=== PATIENT | male | born 1955 | race African-American/Black ===

== ENCOUNTER → 2017-11-11 11:53 | Outpatient (REF) | payer SELFPAY ==
[2017-11-11 17:54] LABS: Basophils % 0.4 % (0.1-2.0); Eosinophils # 0.1 K/mm3 (0.0-0.4); Eosinophils % 1.7 % (0.1-12.0); Hematocrit 47.5 % (42.0-52.0); Hemoglobin 15.2 g/dL (14.1-18.0); Lymphocytes # 2.6 K/mm3 (0.7-4.5); Lymphocytes % 40.9 K/mm3 (10-50); Mean Corpuscular Volume 90.7 fl (80-94); Mean Platelet Volume 8.2 fl (7.4-10.4); Monocytes # 0.6 K/mm3 (0.1-1.0); Monocytes % 8.7 % (1.7-9.3); Neutrophils % 48.4 % (37.0-80.0); Platelet Count 339 K/mm3 (142-424); Red Blood Count 5.24 M/mm3 (4.60-6.20); Red Cell Distribution Width 12.8 % (11.5-17.5); White Blood Count 6.3 K/mm3 (4.8-10.8)
[2017-11-11 19:08] LABS: Alanine Aminotransferase 36 U/L (12-78); Albumin Level 3.8 gm/dL (3.4-5.0); Alkaline Phosphatase 93 U/L (46-116); Anion Gap 14.7 mEq/L (5-15); Aspartate Amino Transferase 35 U/L (15-37); Bilirubin,Total 0.2 mg/dL (0.2-1.0); Blood Urea Nitrogen 16 mg/dL (7-18); Carbon Dioxide 25 mmol/L (21.0-32.0); Chloride 104 mmol/L (98-107); Chol/HDL Ratio 4.4 (1-3.5); Cholesterol 225 mg/dL (140-200); Estimated Glomerular Filt Rate 61 ml/min (>60); GFR (African American) 74 ML/MIN (>60); Globulin 3.9 gm/dl (1.3-3.2); Glucose 104 mg/dL (74-106); HDL Cholesterol 51 mg/dL (27-67); LDL Cholesterol 163 mg/dL (0-130); Potassium 4.7 mmoL/L (3.5-5.1); Sodium 139 mmol/L (136-145); Thyroid Stimulating Hormone 1.16 uIU/ml (0.358-3.740); Total Protein,Serum 7.7 gm/dL (6.4-8.2); Triglycerides 56 mg/dL (30-200); VLDL Cholesterol 11 mg/dL (0-40)
[2017-11-13 15:37] LABS: PSA, Free 0.24 ng/mL; Prostate Specific Ag 0.8 ng/mL (0.0-4.0)
[2017-11-13 15:38] LABS: Vitamin D 25 Hydroxy 28.9 ng/mL (30.0-100.0)
== END ==
LOC: LAB 11:53
PROVIDERS: Visit Provider Physician Assistant
DX: I10 Essential (primary) hypertension (principal); Z79.899 Other long term (current) drug therapy
CPT/HCPCS: 80053; 80061; 82652; 84153; 84154; 84436; 84443; 85025

== ENCOUNTER → 2020-05-29 09:23 | Outpatient (CLI) | payer MEDICARE, SELFPAY ==
[2020-05-29 09:53] LABS: Basophils # 0.1 K/mm3 (0-0.2); Basophils % 1.1 % (0.1-2.0); Eosinophils # 0.2 K/mm3 (0.0-0.4); Eosinophils % 2.2 % (0.1-12.0); Hematocrit 47.9 % (42.0-52.0); Hemoglobin 16.1 g/dL (14.1-18.0); Lymphocytes # 4.4 K/mm3 (0.7-4.5); Lymphocytes % 48.4 % (10-50); Mean Corpuscular HGB Conc 33.6 g/dL (31.8-35.4); Mean Corpuscular Hemoglobin 30.6 pg (27.0-31.2); Mean Corpuscular Volume 91.2 fl (80-94); Mean Platelet Volume 7.5 fl (7.4-10.4); Monocytes # 0.8 K/mm3 (0.1-1.0); Monocytes % 8.4 % (1.7-9.3); Neutrophils # 3.6 K/mm3 (1.8-7.8); Platelet Count 303 K/mm3 (142-424); Red Blood Count 5.25 M/mm3 (4.60-6.20); Red Cell Distribution Width 13.6 % (11.5-17.5)
[2020-05-29 11:54] LABS: Chloride 97 mmol/L (98-107); Potassium 4.1 mmoL/L (3.5-5.1); Sodium 138 mmol/L (136-145)
[2020-05-29 11:57] LABS: Anion Gap 15.1 mEq/L (5-15); Blood Urea Nitrogen 28 mg/dl (9-20); Carbon Dioxide 30 mmol/L (22.0-30.0); Estimated Glomerular Filt Rate 41 ml/min (>60); GFR (African American) 49 ML/MIN (>60)
[2020-05-29 11:58] LABS: Calcium 9.6 mg/dl (8.4-10.2); Glucose 101 mg/dl (74-100)
[2020-05-29 12:17] LABS: Coronavirus 19 IgG Antibody Negative (Negative); Coronavirus 19 IgM Antibody Negative (Negative)
== END ==
PROVIDERS: Visit Provider Surgery
DX: R55 Syncope and collapse (principal); Z98.890 Other specified postprocedural states; Z11.52 Encounter for screening for COVID-19
CPT/HCPCS: 36415; 80048; 85025; 86328

== ENCOUNTER 2020-05-31 06:36 | Day surgery (SDC) | payer MEDICARE, SELFPAY ==
[2020-05-29 08:40] VITALS: BMI 27.9
[2020-05-31] VITALS (7 sets, daily range): BP systolic 96–163; BP diastolic 58–76; PULSE 50–78; RESP 16–18; TEMP 36.4; O2SAT 96–99
--- NOTE | 2020-05-31 07:04 | P.PCN_ITS ---
- Procedure: Date: 05/31/20 Patient Date of :: 1955 Procedure Performed:: Colonoscopy Indications:: History of multiple complex polyps including very large polyp at the hepatic flexure status post piecemeal resection with tattoo placement. Most recent fol low-up colonoscopy in November 2018 was complicated by moderate to poor bowel preparation, severe tortuosity, and fairly severe spasticity/lack of relaxation. A lobulated adenomatous polyp at 50 cm was excised at this time. Recommendations for barium enema secondary to multiple colonoscopies complicated by limited visualization and history of complex polyps were discussed with the patient. He declined barium enema. A short-term repeat colonoscopy was also recommended; however, plans were somewhat delayed secondary to COVID-19. Performing Provider:: Martín Marquez MD Referring Provider:: . Sedation:: Monitored anesthesia care Procedure:: After informed consent was obtained the patient was taken to the endoscopy suite. Sedation ensued after the patient was transferred to the left lateral decubitus position. Pulse, blood pressure, and oxygen saturation were monitored throughout the procedure. Digital rectal exam revealed no significant abnormality. The colonoscope was placed in position. The entire colon was evaluated. The colonoscope was carefully removed and the patient was transferred to recovery in stable condition. Please see findings and specimens below for detail. Findings:: Bowel preparation moderate to poor Persistent significant spasticity and tortuosity Hepatic flexure tattoo region with no obvious abnormality Specimens:: None Recommendations:: Secondary to persistent limitations in visualization and history of significant polyp burden recommendations for a fairly short-term repeat colonoscopy remain (approximately 2-3 years). Complications:: No immediate Estimated blood obtained (mL): 0
--- NOTE | 2020-05-31 07:27 | HMH.ANESCL ---
[facility] Anesthesia Checklist - Patient Identification Patient Identification: Arm Band - Structural Data Admitted From: Home Planned Operative Procedure/s: colonoscopy Consent for Planned Operative Procedure(s) Verified: Yes Verified Documents: Surgical Consent, History and Physical - NPO Status Verified Time NPO: 00:00 - Additional verifications Anesthesia Reactions: No - Airway Assessment C-Spine Mobility Assessed: Yes (mp2) TMJ Mobility Assessed: Yes Dentition: Good Dentition - Neurological Assessment Level of Consciousness: Awake, Alert - Anesthesia Plan Anesthesia Risk discussed: Yes Anesthesia Plan: Verified ASA Class: II Anesthesia Type: MAC [facility] History I have reviewed the patient's past medical history: Yes Medical History: Reports:: Hyperlipidemia, Hypertension Denies:: Cancer, Diabetes Mellitus Type 1, Diabetes Mellitus Type 2, Internal Pacemaker, Lung Disease, MRSA, Seizures *Have you ever received a pneumonia vaccine?: No *Have you received a flu vaccine this season?: No Anesthesia experience/problems:: nac Other Surgeries: Yes: Colonoscopy. No: Pacemaker Amputation: No Fractures: No - *Social History Last grade of school completed: High school graduate Smoking Status: Never smoker Alcohol Intake: never Substance Use Type: denies use *Occupational Status:: employed Housing: house Household Members: spouse, family *Travel in the last 8 weeks: None Family Hx:: No significant family history
--- NOTE | 2020-05-31 08:44 | FL_ITS ---
PROCEDURE: FL BARIUM ENEMA CLINICAL INDICATION: poor prep, spastic colon Spastic colon, COMPARISON: No exams were available for comparison FINDINGS: Fluoroscopy time: 2 minutes [address] exam is unremarkable. The patient is status post colonoscopy. There is a small amount of air within the large and small bowel. The colon is visualized from rectum to cecum. Contrast did not reflux into the terminal ileum but the appendix was filled. There was a mild amount of residual mucous within the colon. No annular constricting lesions or fixed polypoid filling defects were evident. The cecum resides within the right upper quadrant with the appendix in the right upper quadrant. The colon overlap considerably in the right upper quadrant however fluoroscopy of this area was unremarkable. IMPRESSION: Unremarkable air-contrast barium enema. Normal variant is present with the cecum located in the right upper quadrant. Dictated by: Alexandru Hansen MD 06/01/2020 10:59 Alexandru Hansen MD in [place] 06/01/2020 10:59
== END 2020-05-31 09:15 | disposition home or self-care (01) ==
LOC: OUTP 06:38
PROVIDERS: PCP Physician Assistant; Visit Provider Surgery
PROC: 0DJD8ZZ Inspection of Lower Intestinal Tract, Via Natural or Artificial Opening Endoscopic (ICD-10-PCS; CPT G0105; principal; 2020-05-31 07:30)
DX: Z12.11 Encounter for screening for malignant neoplasm of colon (principal); Z86.010 Personal history of colon polyps; Z87.19 Personal history of other diseases of the digestive system; K56.2 Volvulus; I10 Essential (primary) hypertension; E78.5 Hyperlipidemia, unspecified; Z79.82 Long term (current) use of aspirin; Z79.899 Other long term (current) drug therapy
CPT/HCPCS: G0105; 74270

== ENCOUNTER → 2020-11-07 20:13 | Outpatient (CLI) | payer MEDICARE, SELFPAY ==
[2020-11-07 20:49] LABS: Basophils % 0.7 % (0.1-2.0); Eosinophils # 0.1 K/mm3 (0.0-0.4); Eosinophils % 1.8 % (0.1-12.0); Hematocrit 44.3 % (42.0-52.0); Hemoglobin 15.3 g/dL (14.1-18.0); Lymphocytes # 2.9 K/mm3 (0.7-4.5); Lymphocytes % 44.5 % (10-50); Mean Corpuscular HGB Conc 34.5 g/dL (31.8-35.4); Mean Corpuscular Hemoglobin 30.6 pg (27.0-31.2); Mean Corpuscular Volume 88.6 fl (80-94); Mean Platelet Volume 9.4 fl (7.4-10.4); Monocytes # 0.6 K/mm3 (0.1-1.0); Monocytes % 8.9 % (1.7-9.3); Neutrophils # 2.8 K/mm3 (1.8-7.8); Neutrophils % 44.1 % (37.0-80.0); Platelet Count 275 K/mm3 (142-424); Red Cell Distribution Width 13.5 % (11.5-17.5); White Blood Count 6.4 K/mm3 (4.8-10.8)
[2020-11-07 21:18] LABS: Alanine Aminotransferase 27 U/L (12-78); Albumin Level 4.3 g/dl (3.5-5.0); Albumin/Globulin Ratio 1.4 (1.1-1.8); Alkaline Phosphatase 94 U/L (38-126); Anion Gap 13.3 mEq/L (5-15); Aspartate Amino Transferase 27 U/L (17-59); Bilirubin,Total 0.4 mg/dl (0.2-1.3); Blood Urea Nitrogen 21 mg/dl (9-20); Calcium 8.9 mg/dl (8.4-10.2); Carbon Dioxide 28 mmol/L (22.0-30.0); Chloride 100 mmol/L (98-107); Chol/HDL Ratio 3.1 (1-3.5); Cholesterol 145 mg/dl (140-200); Estimated Glomerular Filt Rate 51 ml/min (>60); GFR (African American) 61 ML/MIN (>60); Glucose 120 mg/dl (74-100); HDL Cholesterol 47 mg/dl (40-60); Potassium 3.3 mmoL/L (3.5-5.1); Sodium 138 mmol/L (136-145); Total Protein,Serum 7.3 g/dl (6.3-8.2); Triglycerides 88 mg/dl (30-150); VLDL Cholesterol 18 mg/dL (0-40)
[2020-11-07 21:29] LABS: Direct LDL Cholesterol 76.78 mg/dL (100-129)
[2020-11-07 21:35] LABS: Free T4 (Free Thyroxine) 0.95 ng/dl (0.78-2.19)
[2020-11-07 21:38] LABS: 25-OH Vitamin D, Total 29.5 ng/mL (30-100)
[2020-11-07 21:50] LABS: Prostate Specific Ag Screen 0.8 ng/ml (0.0-4.0); Thyroid Stimulating Hormone 1.26 uIU/mL (0.465-4.68)
== END ==
PROVIDERS: Visit Provider Physician Assistant
DX: E78.5 Hyperlipidemia, unspecified (principal); I10 Essential (primary) hypertension; N28.9 Disorder of kidney and ureter, unspecified; E55.9 Vitamin D deficiency, unspecified; Z12.5 Encounter for screening for malignant neoplasm of prostate
CPT/HCPCS: 80053; 80061; 82306; 84439; 84443; 85025; G0103

== ENCOUNTER → 2021-01-22 09:09 | Outpatient (CLI) | payer MEDICARE, SELFPAY | PROVIDERS: PCP Emergency Medicine; Visit Provider Emergency Medicine | DX: Z20.822 Contact with and (suspected) exposure to COVID-19 (principal) | CPT/HCPCS: U0003 ==

== ENCOUNTER → 2021-07-15 16:00 | Outpatient (CLI) | payer MEDICARE, SELFPAY | PROVIDERS: Visit Provider Physician Assistant | DX: M54.9 Dorsalgia, unspecified (principal); B95.8 Unspecified staphylococcus as the cause of diseases classified elsewhere | CPT/HCPCS: 87086; 87088; 87186 ==

== ENCOUNTER → 2021-07-19 06:46 | Outpatient (CLI) | payer MEDICARE, SELFPAY ==
--- NOTE | 2021-07-19 06:46 | CT_ITS ---
FINAL REPORT CLINICAL HISTORY: right flank pain, hematuria x4-5 days FINDINGS: Axial CT images of the abdomen and pelvis were obtained without intravenous contrast. Coronal reformatted images were also obtained.This study was performed with techniques to keep radiation doses as low as reasonably achievable (ALARA). Individualized dose reduction techniques using automated exposure control or adjustment of mA and/or kV according to the patient's size were employed. Abdomen: There is mild scarring and a calcified granuloma in the left lung base. There is no evidence of renal stone or hydronephrosis. The gallbladder is present. The liver, spleen and pancreas have an unremarkable, unenhanced appearance. No mass or adenopathy is seen. No inflammatory process is identified. Pelvis: Images of the pelvis reveal no evidence of ureteral dilation or ureteral stone. There is diverticulosis of the sigmoid colon. The appendix is normal. There are degenerative changes of the lumbar spine and SI joints. There is a moderate right hydrocele with a small presumed calcification within it. IMPRESSION: No renal or ureteral stone, or hydronephrosis. Normal appendix. Diverticulosis without evidence of diverticulitis. Moderate right hydrocele with a small presumed calcification within it. Reviewed, Interpreted and Dictated by Gerhard Chinchilla III, MD Transcribed by Suresh Mulligan Authenticated by Gerhard Chinchilla III, MD on 07/19/2021 08:29:45 AM [facility]
== END ==
PROVIDERS: PCP Emergency Medicine; Visit Provider Physician Assistant
DX: R10.9 Unspecified abdominal pain (principal); R31.9 Hematuria, unspecified
CPT/HCPCS: 74176

== ENCOUNTER → 2021-07-31 13:36 | Outpatient (CLI) | payer MEDICARE, SELFPAY | PROVIDERS: Visit Provider Nurse Practitioner Family | DX: N39.0 Urinary tract infection, site not specified (principal) | CPT/HCPCS: 87086 ==

== ENCOUNTER → 2022-09-04 23:14 | Outpatient (CLI) | payer MEDICARE, SELFPAY ==
[2022-09-04 17:50] LABS: Basophils % 0.5 % (0.1-2.0); Eosinophils # 0.2 K/mm3 (0.0-0.4); Eosinophils % 2.3 % (0.1-12.0); Hematocrit 45.8 % (42.0-52.0); Hemoglobin 15.4 g/dL (14.1-18.0); Lymphocytes # 2.8 K/mm3 (0.7-4.5); Lymphocytes % 40.4 % (10-50); Mean Corpuscular HGB Conc 33.7 g/dL (31.8-35.4); Mean Corpuscular Hemoglobin 30.5 pg (27.0-31.2); Mean Corpuscular Volume 90.6 fl (80-94); Mean Platelet Volume 9.3 fl (7.4-10.4); Monocytes # 0.8 K/mm3 (0.1-1.0); Monocytes % 11.5 % (1.7-9.3); Neutrophils # 3.1 K/mm3 (1.8-7.8); Neutrophils % 45.3 % (37.0-80.0); Platelet Count 331 K/mm3 (142-424); Red Blood Count 5.06 M/mm3 (4.60-6.20); White Blood Count 6.8 K/mm3 (4.8-10.8)
[2022-09-04 18:07] LABS: Hemoglobin A1C 5.4 % (4.0-6.0)
[2022-09-04 18:20] LABS: Alanine Aminotransferase 25 U/L (12-78); Albumin Level 4.7 g/dl (3.5-5.0); Albumin/Globulin Ratio 1.5 (1.1-1.8); Alkaline Phosphatase 87 U/L (38-126); Anion Gap 15.5 mEq/L (5-15); Aspartate Amino Transferase 26 U/L (17-59); Bilirubin,Total 0.6 mg/dl (0.2-1.3); Blood Urea Nitrogen 26 mg/dl (9-20); Calcium 9.4 mg/dl (8.4-10.2); Carbon Dioxide 26 mmol/L (22.0-30.0); Chloride 100 mmol/L (98-107); Chol/HDL Ratio 3.7 (1-3.5); Cholesterol 172 mg/dl (140-200); Estimated Glomerular Filt Rate 43 ml/min (>60); GFR (African American) 52 ML/MIN (>60); Globulin 3.2 g/dL (1.3-3.2); Glucose 98 mg/dl (74-100); HDL Cholesterol 47 mg/dl (40-60); Potassium 3.5 mmoL/L (3.5-5.1); Sodium 138 mmol/L (136-145); Total Protein,Serum 7.9 g/dl (6.3-8.2); Triglycerides 121 mg/dl (30-150); VLDL Cholesterol 24 mg/dL (0-40)
[2022-09-04 18:31] LABS: Direct LDL Cholesterol 94.77 mg/dL (100-129)
[2022-09-04 18:51] LABS: Prostate Specific Ag Screen 1.2 ng/ml (0.0-4.0); Thyroid Stimulating Hormone 0.79 uIU/mL (0.465-4.68)
== END ==
PROVIDERS: PCP Nurse Practitioner Family; Visit Provider Nurse Practitioner Family
DX: I10 Essential (primary) hypertension (principal); E11.9 Type 2 diabetes mellitus without complications; Z12.5 Encounter for screening for malignant neoplasm of prostate
CPT/HCPCS: 80053; 80061; 83036; 84443; 85025; G0103

== ENCOUNTER 2022-11-20 08:57 | Day surgery (SDC) | payer MEDICARE, SELFPAY ==
[2022-11-20 09:15] VITALS: BP 168/69; PULSE 53; RESP 18; TEMP 36.8; O2SAT 96; BMI 26.6
--- NOTE | 2022-11-20 09:21 | EXP.ANES.CKL ---
[facility] Disclaimer: The information contained in this section may have been updated after the patient was seen, as this information can be updated by other users. Medical History Essential hypertension Hyperlipidemia Hypertension Renal insufficiency Surgical History No significant past surgical history Family History Other No significant family history Social History Smoking Status: Never smoker alcohol intake: never substance use type: denies use current occupational status: retired Travel in the last 8 weeks: None household members: spouse and family housing: house marital status: education level: high school service: No caffeine: No do you feel safe at home: Yes victim of physical abuse: No victim of emotional abuse: No victim of sexual abuse: No would you like helpful sources: No [facility] Anesthesia Checklist Patient Identification Patient Identification: Arm Band Structural Data Admitted From: Home Planned Operative Procedure/s: colonoscopy Consent for Planned Operative Procedure(s) Verified: Yes Verified Documents: Surgical Consent and History and Physical NPO Status Verified Time NPO: 00:00 Additional verifications Anesthesia Reactions: No Airway Assessment C-Spine Mobility Assessed: Yes TMJ Mobility Assessed: Yes Dentition: Good Dentition Neurological Assessment Level of Consciousness: Awake and Alert Anesthesia Plan Anesthesia Risk discussed: Yes Anesthesia Plan: Verified ASA Class: II Anesthesia Type: MAC
[2022-11-20 09:32] VITALS: O2SAT 96
--- NOTE | 2022-11-20 09:49 | HMH.SCOPE ---
Procedure: Date: 11/20/22 Patient Date of :: 1955 Procedure Performed:: Screening colonoscopy Indications:: History of polyps Performing Provider:: Sonny Rowe MD Referring Provider:: Fredy Kraft APRN Sedation:: Propofol Procedure:: After placing the patient in the left lateral decubitus position, the colonoscopy was gently inserted into the rectum and under direct visualization advanced to the cecum which was identified by transillumination in the right lower quadrant, identification of the ileocecal valve, appendiceal orifice, and cecal strap. Color, texture, mucosa, and anatomy of the colon were carefully examined with the scope. Findings:: Anal canal: normal Rectum: normal Sigmoid colon: normal without polyps or inflammatory changes Descending colon: normal without polyps or inflammatory changes Splenic flexure: normal Transverse colon: normal without polyps or inflammatory changes Hepatic flexure: normal Ascending colon: normal without polyps or inflammatory changes Cecum: normal Terminal ileum: not visualized Impression: Normal colonoscopy Recommendations:: Follow up examination in about FIVE years or so, sooner if clinically indicated in view of history of polyps. Complications:: None Estimated blood obtained (mL): 0 Colonoscopy Component Colonoscopy Component Was a colonoscopy performed during today's procedure?: Yes Recommended follow up colonoscopy of at least 10 years?: No If no, follow up colonoscopy recommended in ___ years?: Five Reason for not recommending >/= 10 yr follow-up interval?: Personal history of polyps
[2022-11-20 09:52] VITALS: BP 107/63; PULSE 60; RESP 18; TEMP 36.4; O2SAT 100
[2022-11-20 10:02] VITALS: BP 124/58; PULSE 66; RESP 18; TEMP 36.4; O2SAT 93
[2022-11-20 10:12] VITALS: BP 133/79; PULSE 54; RESP 18; TEMP 36.4; O2SAT 100
[2022-11-20 10:24] VITALS: BP 142/75; PULSE 56; RESP 18; TEMP 36.4; O2SAT 100
== END 2022-11-20 10:24 | disposition home or self-care (01) ==
PROVIDERS: PCP Nurse Practitioner Family; Visit Provider Internal Medicine Gastroenterology
PROC: 0DJD8ZZ Inspection of Lower Intestinal Tract, Via Natural or Artificial Opening Endoscopic (ICD-10-PCS; CPT 45378; principal; 2022-11-20 10:00)
DX: Z12.11 Encounter for screening for malignant neoplasm of colon (principal); Z86.010 Personal history of colon polyps
CPT/HCPCS: G0105

== ENCOUNTER 2023-12-02 12:27 | Outpatient (CLI) | payer MEDICARE, SELFPAY ==
[2023-12-02 18:39] LABS: Basophils % 0.5 % (0.1-2.0); Eosinophils # 0.1 K/mm3 (0.0-0.4); Eosinophils % 1.6 % (0.1-12.0); Hematocrit 47.5 % (42.0-52.0); Hemoglobin 16.2 g/dL (14.1-18.0); Lymphocytes # 2.5 K/mm3 (0.7-4.5); Lymphocytes % 43.3 % (10-50); Mean Corpuscular HGB Conc 34.1 g/dL (31.8-35.4); Mean Corpuscular Hemoglobin 31.7 pg (27.0-31.2); Mean Platelet Volume 9.2 fl (7.4-10.4); Monocytes # 0.5 K/mm3 (0.1-1.0); Monocytes % 9.5 % (1.7-9.3); Neutrophils # 2.6 K/mm3 (1.8-7.8); Neutrophils % 45.1 % (37.0-80.0); Platelet Count 266 K/mm3 (142-424); Red Cell Distribution Width 13.7 % (11.5-17.5); White Blood Count 5.7 K/mm3 (4.8-10.8)
[2023-12-02 19:31] LABS: Alanine Aminotransferase 24 U/L (12-78); Albumin Level 4.6 g/dl (3.5-5.0); Albumin/Globulin Ratio 1.4 (1.1-1.8); Alkaline Phosphatase 87 U/L (38-126); Anion Gap 15.2 mEq/L (5-15); Aspartate Amino Transferase 25 U/L (17-59); Bilirubin,Total 0.6 mg/dl (0.2-1.3); Blood Urea Nitrogen 22 mg/dl (9-20); Calcium 9.7 mg/dl (8.4-10.2); Carbon Dioxide 27 mmol/L (22.0-30.0); Chloride 104 mmol/L (98-107); Chol/HDL Ratio 3.6 (1-3.5); Cholesterol 185 mg/dl (140-200); Estimated Glomerular Filt Rate 50 ml/min (>60); GFR (African American) 61 ML/MIN (>60); Globulin 3.3 g/dL (1.3-3.2); Glucose 89 mg/dl (74-100); HDL Cholesterol 52 mg/dl (40-60); Potassium 4.2 mmoL/L (3.5-5.1); Sodium 142 mmol/L (136-145); Total Protein,Serum 7.9 g/dl (6.3-8.2); Triglycerides 86 mg/dl (30-150); VLDL Cholesterol 17 mg/dL (0-40)
[2023-12-02 19:49] LABS: Direct LDL Cholesterol 93.82 mg/dL (100-129)
[2023-12-02 20:03] LABS: Prostate Specific Ag Screen 1.5 ng/ml (0.0-4.0)
[2023-12-14 18:10] LABS: 1,25 Dihydroxy Vitamin D 44 pg/mL (.); 1,25-Dihydroxy, Vitamin D-2 30 pg/mL (.); 1,25-Dihydroxy, Vitamin D-3 14 pg/mL (.)
== END 2023-12-02 23:59 | disposition home or self-care (01) ==
LOC: LAB.DROPOF 12-03 12:37
PROVIDERS: PCP Nurse Practitioner Family; Visit Provider Nurse Practitioner Family
DX: E78.5 Hyperlipidemia, unspecified (principal); I10 Essential (primary) hypertension; K52.9 Noninfective gastroenteritis and colitis, unspecified; R53.83 Other fatigue; Z12.5 Encounter for screening for malignant neoplasm of prostate; Z79.82 Long term (current) use of aspirin
CPT/HCPCS: 80050; 80053; 80061; 82652; 84443; 85025; G0103

== ENCOUNTER 2023-12-29 15:52 | Emergency (ER) | payer MEDICARE, SELFPAY ==
[2023-12-29] VITALS (10 sets, daily range): BP systolic 116–162; BP diastolic 68–92; PULSE 71–84; RESP 16–19; TEMP 36.6–36.8; O2SAT 95–97; BMI 27.4
--- NOTE | 2023-12-29 15:48 | ECG_ITS ---
APPROVED REPORT Exam: Resting ECG HR:70 bpm ECG Measurements Heart Rate 70 AXES NE 182 P 56 QRSd 92 QRS -3 QT 387 T 56 QTc 408 Conclusion SINUS RHYTHM NORMAL ECG UNCONFIRMED REPORT Electronically signed by : Sam Grande, 12/29/2023 22:53:52
--- NOTE | 2023-12-29 16:04 | CT_ITS ---
PROCEDURE INFORMATION: Exam: CT Cervical Spine Without Contrast Exam date and time: 12/29/2023 4:22 PM Age: 68 years old Clinical indication: Injury or trauma; Blunt trauma; Patient HX: States he does not remember falling; Additional info: Syncope injury TECHNIQUE: Imaging protocol: Computed tomography of the cervical spine without contrast. Radiation optimization: All CT scans at this facility use at least one of these dose optimization techniques: automated exposure control; mA and/or kV adjustment per patient size (includes targeted exams where dose is matched to clinical indication); or iterative reconstruction. COMPARISON: CT CERVICAL SPINE WO CON 04/09/2019 9:04 PM FINDINGS: Bones: No cervical spine fracture or listhesis. Discs/Spinal canal/Neural foramina: C2-C3: No degenerative disc disease. Severe left facet arthropathy. Mild left foraminal stenosis. No spinal canal stenosis. C3-C4: Mild degenerative disc disease. Mild bilateral facet arthropathy. Mild bilateral foraminal stenosis. Mild spinal canal stenosis. C4-C5: Jfvf-yf-gqljpfaq degenerative disc disease. Mild bilateral facet arthropathy. Moderate right and mild left foraminal stenosis. Mcvq-sj-dyqmruxy spinal canal stenosis. C5-C6: Euah-fi-jwkiwawh degenerative disc disease. Mild bilateral facet arthropathy. Moderate right and mild left foraminal stenosis. Moderate spinal canal stenosis. C6-C7: Vird-no-ghhovxwj degenerative disc disease. Hkpi-ut-wmsmwfmv bilateral foraminal stenosis. Moderate spinal canal stenosis. C7-T1: Qtor-kc-nnygahri degenerative disc disease. Mild right foraminal stenosis. Mild spinal canal stenosis. Lungs: Lung apices are normal. Soft tissues: Unremarkable. IMPRESSION: 1. No cervical spine fracture or listhesis. 2. Multilevel degenerative disc disease and facet arthropathy with multiple levels of gvvz-fi-bhjpfgxs foraminal stenosis and spinal canal stenosis.
--- NOTE | 2023-12-29 16:04 | XR_ITS ---
PROCEDURE INFORMATION: Exam: XR Chest Exam date and time: 12/29/2023 4:18 PM Age: 68 years old Clinical indication: Cough TECHNIQUE: Imaging protocol: Radiologic exam of the chest. Views: 1 view. COMPARISON: 1. CR XR CHEST PORTABLE 12/29/2023 4:18 PM 2. CR XR CHEST 2V 04/09/2019 9:12 PM FINDINGS: Lungs: Clear. Calcified left hilar lymph node. Pleural spaces: Normal. No pleural effusion. No pneumothorax. Heart/Mediastinum: Normal. No cardiomegaly. Bones/joints: Mild thoracic spine degenerative change. Moderate degenerative change of the bilateral acromioclavicular joints. Mild degenerative change of the bilateral glenohumeral joints. IMPRESSION: No acute findings.
--- NOTE | 2023-12-29 16:04 | CT_ITS ---
PROCEDURE INFORMATION: Exam: CT Head Without Contrast Exam date and time: 12/29/2023 4:22 PM Age: 68 years old Clinical indication: Injury or trauma; Blunt trauma (contusions or hematomas); Patient HX: States he does not remember falling; Additional info: Syncope injury TECHNIQUE: Imaging protocol: Computed tomography of the head without contrast. Radiation optimization: All CT scans at this facility use at least one of these dose optimization techniques: automated exposure control; mA and/or kV adjustment per patient size (includes targeted exams where dose is matched to clinical indication); or iterative reconstruction. COMPARISON: CT HEAD/BRAIN WO CON 04/09/2019 9:01 PM FINDINGS: Brain: Normal. No hemorrhage. Unremarkable white matter. No mass effect. Incidental calcifications in the bilateral basal ganglia. Cerebral ventricles: No ventriculomegaly. Paranasal sinuses: Visualized sinuses are unremarkable. No fluid levels. Mastoid air cells: Visualized mastoid air cells are well aerated. Bones: Unremarkable. No acute fracture. Soft tissues: Scattered bilateral punctate skin calcifications. Vasculature: Mild calcified plaque in the bilateral distal internal carotid arteries. IMPRESSION: No acute intracranial findings.
--- NOTE | 2023-12-29 16:11 | HMH.EDGENADL ---
Discharge Plan Disposition Patient Disposition: Home, Self-Care Prescriptions Prescriptions: New Paxlovid 300 mg (150 mg x 2)-100 mg tablets,dose pack See Rx Instructions .ROUTE .COMPLEX Qty: 30 0RF Rx Instructions: take TWO 150 mg tablets of nirmatrelvir with ONE 100 mg tablet of ritonavir twice daily for 5 days No Action aspirin 81 mg tablet,delayed release (DR/EC) 81 mg PO DAILY Qty: 90 0RF verapamil 240 mg tablet extended release See Rx Instructions .ROUTE .COMPLEX Qty: 90 3RF Dose Instruction: TAKE 1 TABLET EVERY MORNING FOR BLOOD PRESSURE Rx Instructions: TAKE 1 TABLET EVERY MORNING FOR BLOOD PRESSURE atorvastatin 10 mg tablet See Rx Instructions .ROUTE .COMPLEX Qty: 90 3RF Dose Instruction: TAKE 1 TABLET DAILY AT BEDTIME FOR CHOLESTEROL Rx Instructions: TAKE 1 TABLET DAILY AT BEDTIME FOR CHOLESTEROL cholecalciferol (vitamin D3) 25 mcg (1,000 unit) tablet See Rx Instructions .ROUTE .COMPLEX Qty: 90 3RF Dose Instruction: TAKE ONE TABLET BY MOUTH ONCE A DAY Rx Instructions: TAKE ONE TABLET BY MOUTH ONCE A DAY ergocalciferol (vitamin D2) 1,250 mcg (50,000 unit) capsule See Rx Instructions .ROUTE .COMPLEX Qty: 13 3RF Dose Instruction: TAKE ONE CAPSULE BY MOUTH ONCE A WEEK Rx Instructions: TAKE ONE CAPSULE BY MOUTH ONCE A WEEK chlorthalidone 50 mg tablet See Rx Instructions .ROUTE .COMPLEX Qty: 90 3RF Dose Instruction: TAKE 1 TABLET EVERY DAY Rx Instructions: TAKE 1 TABLET EVERY DAY Referrals Follow up/Referrals: Mack Baltazar MD [Staff Physician] - See instructions (syncope in the setting of covid, cannot r/o arrhythmia ) Activity Restrictions/Add. Instructions Additional Instructions/Restrictions: No evidence of an emergent medical condition. Your symptoms most likely were secondary to vasovagal syncope in the setting of a viral syndrome. Cannot definitively rule out an arrhythmia and because of this we will have you follow-up with Dr. Baltazar. You have been prescribed Paxlovid to treat your COVID-19 that should be self-limiting but this may improve your symptoms. Return with any significant worsening or other concerns. Clinical Impressions Clinical Impression: Syncope, Cough, Laceration of ear, Minor head injury, COVID-19 Instructions Patient Instructions: DI for Syncope in Adults (Fainting), DI for Syncope in Children (Fainting) Print Language Print Language: Divehi Discharge ED Provider: [facility] HPI General Chief complaint: Syncope Stated complaint: syncope Time Seen by Provider: 12/29/23 15:57 Mode of Arrival: EMS Source of Information: Patient Limitations: No Limitations Description of Symptoms (Recalled from ER Triage Doc. by RN): pt presents to ED from pcp for possible syncopal episode. pt reports he does not remember the fall, but does remember EMs arriving. staff of pcp office report that pt did hit his head, but pt reports no pain. pt presents with c collar. History of Present Illness HPI narrative: Patient is a 68-year-old male presenting today after being brought in by EMS for a syncopal episode. He was at his primary care office today for a cough and just overall not feeling well for the last several days. States that he was feeling jittery felt a little bit nauseated like he needed to go to the bathroom and next thing he knew he was laying on the ground with multiple people standing over him. He had a witnessed syncopal episode. There may have been some shaking but no definitive seizure-like activity. Patient did not bite his tongue did not have any urinary incontinence has no history of seizures. Had no postictal state. States he currently feels back to normal states that he feels that he is strong enough to jump and touch the ceiling. Denies any chest pain history of cardiopulmonary disease. Denies any history of heart failure melena GI bleeding any other symptoms leading up to today. No fevers. Related Data Previous Rx's ?Medication ?Instructions ?Recorded aspirin 81 mg tablet,delayed 81 mg PO DAILY Heart disease #90 05/26/19 release tabs atorvastatin 10 mg tablet See Rx Instructions .Route 05/25/23 .COMPLEX #90 tabs verapamil 240 mg tablet,extended See Rx Instructions .Route 05/25/23 release .COMPLEX #90 tabs cholecalciferol (vitamin D3) 25 See Rx Instructions .Route 08/26/23 mcg (1,000 unit) tablet .COMPLEX #90 tabs ergocalciferol (vitamin D2) 1,250 See Rx Instructions .Route 09/23/23 mcg (50,000 unit) capsule .COMPLEX #13 caps chlorthalidone 50 mg tablet See Rx Instructions .Route 10/19/23 .COMPLEX #90 tabs nirmatrelvir 300 mg (150 mg See Rx Instructions PO .COMPLEX 12/29/23 x2)-ritonavir 100 mg tablet,dose #30 tabs pack (Paxlovid) Allergies Allergy/AdvReac Type Severity Reaction Status Date / Time No Known Allergies Allergy Verified 12/02/23 13:31 [facility] Disclaimer: The information contained in this section may have been updated after the patient was seen, as this information can be updated by other users. Medical History Hyperlipidemia Renal insufficiency Hypertension Essential hypertension Surgical History No significant past surgical history Family History Other No significant family history Social History Smoking Status: Never smoker alcohol intake: never substance use type: denies use current occupational status: retired Travel in the last 8 weeks: None household members: spouse and family housing: house marital status: education level: high school service: No caffeine: No do you feel safe at home: Yes victim of physical abuse: No victim of emotional abuse: No victim of sexual abuse: No would you like helpful sources: No ROS Obtained: Yes All systems reviewed & no additional complaints except as documented Physical Exam General General appearance: alert and in no apparent distress Head Head exam: atraumatic and normocephalic ENT ENT exam: Present other (There is a 2-1/2 cm laceration vertically oriented at the posterior aspect of the left ear otherwise no evidence of any head or neck trauma) Neck Neck exam: Present other (Nexus negative was in a c-collar this was removed clinically); Absent tenderness Respiratory Respiratory exam: Present normal lung sounds bilaterally and respiratory distress Cardiovascular Cardiovascular exam: Present regular rate and normal rhythm Abdominal Exam Abdominal exam: Present soft; Absent distention or tenderness Neurological Exam Neurological exam: Present alert, oriented X3 and other (Nonfocal neurologic exam) Medical Decision Making Tim Inquiry Pt receiving controlled substance: No Vital Signs: 12/29/23 15:52 12/29/23 16:00 12/29/23 16:04 Temperature 98.2 F Temperature Source Oral Pulse Rate 71 Pulse Rate [Left Radial] 75 Pulse Rate [Orthostatic Lying Right] 74 Pulse Rate [Orthostatic Sitting Right] 75 Pulse Rate [Orthostatic Standing Right] 74 Respiratory Rate 19 Blood Pressure 162/92 H Blood Pressure [Orthostatic Lying Right Arm] 146/78 H Blood Pressure [Orthostatic Sitting Right Arm] 133/81 Blood Pressure [Orthostatic Standing Right Arm] 116/68 Blood Pressure [Right Arm] 162/92 H Blood Pressure Mean [Right Arm] 115 02 Sat by Pulse Oximetry 97 97 Oxygen Delivery Method Room Air Room Air 12/29/23 16:31 12/29/23 16:33 12/29/23 16:34 Temperature Temperature Source Pulse Rate 72 74 72 Pulse Rate [Left Radial] Pulse Rate [Orthostatic Lying Right] Pulse Rate [Orthostatic Sitting Right] Pulse Rate [Orthostatic Standing Right] Respiratory Rate Blood Pressure 144/75 H 146/78 H 133/81 Blood Pressure [Orthostatic Lying Right Arm] Blood Pressure [Orthostatic Sitting Right Arm] Blood Pressure [Orthostatic Standing Right Arm] Blood Pressure [Right Arm] Blood Pressure Mean [Right Arm] 02 Sat by Pulse Oximetry 96 96 95 Oxygen Delivery Method Room Air Room Air Room Air 12/29/23 16:36 12/29/23 17:00 Temperature Temperature Source Pulse Rate 82 72 Pulse Rate [Left Radial] Pulse Rate [Orthostatic Lying Right] Pulse Rate [Orthostatic Sitting Right] Pulse Rate [Orthostatic Standing Right] Respiratory Rate Blood Pressure 116/68 149/80 H Blood Pressure [Orthostatic Lying Right Arm] Blood Pressure [Orthostatic Sitting Right Arm] Blood Pressure [Orthostatic Standing Right Arm] Blood Pressure [Right Arm] Blood Pressure Mean [Right Arm] 02 Sat by Pulse Oximetry 96 96 Oxygen Delivery Method Room Air Room Air Lab Data Lab results reviewed: Yes I reviewed the patient's lab results. Lab Results 12/29/23 15:56: WBC 9.0, RBC 5.10, Hgb 15.7, Hct 48.4, MCV 94.8 H, MCH 30.7, MCHC 32.4, RDW 13.8, Plt Count 251, MPV 8.4, Neut % (Auto) 50.3, Lymph % (Auto) 31.0, [place] % (Auto) 14.8 H, Eos % (Auto) 1.1, Baso % (Auto) 2.7 H, Neut # (Auto) 4.5, Lymph # (Auto) 2.8, [place] # (Auto) 1.3 H, Eos # (Auto) 0.1, Baso # (Auto) 0.3 H, Sodium 138, Potassium 3.6, Chloride 101, Carbon Dioxide 29, Anion Gap 11.6, BUN 22 H, Creatinine 1.60 H, Estimated Creat Clear 48, Estimated GFR 43 L, Est GFR ( Amer) 52 L, Glucose 117 H, Calcium 9.1, Total Bilirubin 0.6, AST 38, ALT 37, Alkaline Phosphatase 70, Troponin I < 0.01, NT-Pro-B Natriuret Pep 270 H, Total Protein 8.4 H, Albumin 4.6, Globulin 3.8 H, Albumin/Globulin Ratio 1.2 12/29/23 16:28: SARS-CoV-2 (PCR) Detected A, Influenza A Untype (PCR) Not detected, Influenza Type B (PCR) Not detected 12/29/23 15:56 12/29/23 15:56 Orders (Tests/Meds): ED MEDICATIONS Discontinued Medications Generic Name Dose Route Start Last Admin Trade Name Freq PRN Reason Stop Dose Admin Lactated Ringer's 1,000 mls @ 999 mls/hr 12/29/23 16:15 12/29/23 16:30 Lactated Ringer's 1000 Ml Bag IV 12/29/23 17:15 999 mls/hr .Q1H1M BETTINA Administration ORDERS Category Date Time Status CT cervical spine wo con Stat Cat Scan 12/29/23 16:[address] head/brain wo con Stat Cat Scan 12/29/23 16:04 Completed CXR --portable [XR chest portable] Stat Exams 12/29/23 16:04 Completed BNP [NT Pro Brain Natriuretic Pep.] Stat Lab 12/29/23 15:56 Completed CBC w/Auto Diff [Complete Blood Count Auto Diff] Stat Lab 12/29/23 15:56 Completed CMP [Comprehensive Metabolic Panel] Stat Lab 12/29/23 15:56 Completed Rapid PCR Covid and Flu A/B Stat Lab 12/29/23 16:28 Completed Trop I [Troponin I] Stat Lab 12/29/23 15:56 Completed Troponin I Q3H Lab 12/29/23 19:15 Ordered Troponin I Q3H Lab 12/29/23 22:15 Ordered ECG Data Tracing #1: I reviewed this ECG and interpreted as documented below: Ventricular rate of 70 sinus rhythm no acute ischemic changes noted no significant duction abnormality or axis deviation Medical Decision Narrative: 68-year-old male presenting today with a syncopal episode most likely neurocardiogenic or vasovagal in nature in the setting of a viral illness. States that he had some nausea and felt a little bit jittery prior to this. Other pathology on the differential would include metabolic abnormalities dehydration seizure etc. From history standpoint this does not appear to be consistent with a seizure. Will give him IV fluids get a CT scan of his head and cervical spine workup the cough that he was going to his doctor for today including COVID and flu and chest x-ray. Basic blood work have been initiated will reassess after this initial workup is complete and his laceration is repaired. Chest x-ray performed to person interpreted shows no acute cardiopulmonary emergency CT scan of the patient's head and neck unremarkable on my personal interpreted radiology read. Patient is positive for COVID has had symptoms less than 48 hours will give him Paxlovid bid given his age. Does not appear to have any contraindications to this medication. Laceration repaired successfully. He will return in 7 to 10 days for suture removal. Lastly I will have him follow-up with cardiology given the fact that he has COVID and passed out make sure he did not have any cardiac related arrhythmia which we have been seeing some with viral etiologies. Troponin is undetectably low unlikely to be myocarditis. Procedures Laceration Laceration 1: Site: other (left ear ) Side (If applicable): left Size (cm): 2.5 Description: linear Depth: simple, single layer Local Anesthetic: lidocaine 1% and with epi (auricular block ) Amount of anesthesia used (mL): 5 Pre-repair: irrigated extensively Skin layer closed with: nylon Size (cm): 4-0 Number of sutures: 3 Technique: simple, interrupted Critical Care Critical Care Time Critical Care Time: No
[2023-12-29 16:16] LABS: Basophils # 0.3 K/mm3 (0-0.2); Basophils % 2.7 % (0.1-2.0); Eosinophils # 0.1 K/mm3 (0.0-0.4); Eosinophils % 1.1 % (0.1-12.0); Hematocrit 48.4 % (42.0-52.0); Hemoglobin 15.7 g/dL (14.1-18.0); Lymphocytes # 2.8 K/mm3 (0.7-4.5); Mean Corpuscular HGB Conc 32.4 g/dL (31.8-35.4); Mean Corpuscular Hemoglobin 30.7 pg (27.0-31.2); Mean Corpuscular Volume 94.8 fl (80-94); Mean Platelet Volume 8.4 fl (7.4-10.4); Monocytes # 1.3 K/mm3 (0.1-1.0); Monocytes % 14.8 % (1.7-9.3); Neutrophils # 4.5 K/mm3 (1.8-7.8); Neutrophils % 50.3 % (37.0-80.0); Platelet Count 251 K/mm3 (142-424); Red Cell Distribution Width 13.8 % (11.5-17.5)
[2023-12-29 16:19] LABS: Alanine Aminotransferase 37 U/L (12-78); Albumin Level 4.6 g/dl (3.5-5.0); Albumin/Globulin Ratio 1.2 (1.1-1.8); Alkaline Phosphatase 70 U/L (38-126); Anion Gap 11.6 mEq/L (5-15); Aspartate Amino Transferase 38 U/L (17-59); Bilirubin,Total 0.6 mg/dl (0.2-1.3); Blood Urea Nitrogen 22 mg/dl (9-20); Calcium 9.1 mg/dl (8.4-10.2); Carbon Dioxide 29 mmol/L (22.0-30.0); Chloride 101 mmol/L (98-107); Creatinine Clearance Estimated 48 mL/min (50-200); Estimated Glomerular Filt Rate 43 ml/min (>60); GFR (African American) 52 ML/MIN (>60); Globulin 3.8 g/dL (1.3-3.2); Glucose 117 mg/dl (74-100); Potassium 3.6 mmoL/L (3.5-5.1); Sodium 138 mmol/L (136-145); Total Protein,Serum 8.4 g/dl (6.3-8.2)
[2023-12-29 16:30] LABS: NT Pro Brain Natriuretic Pep. 270 pg/mL (0-125)
[2023-12-29] MEDS: LACTATED RINGERS 1000ML 1,000 ML 999 ML IV (16:30)
[2023-12-29 16:32] LABS: Troponin I < 0.01 ng/ml (0.00-0.034)
[2023-12-29 16:34] LABS: Influenza A, PCR Not Detected (NotDetected); Influenza B, PCR Not Detected (NotDetected)
[2023-12-29 17:01] LABS: Coronavirus 19, PCR Detected (NotDetected)
== END 2023-12-29 18:18 | disposition home or self-care (01) ==
PROVIDERS: Emergency Provider Student in an Organized Health Care Education/Training Program; PCP Internal Medicine
DX: U07.1 COVID-19 (principal); S09.90XA Unspecified injury of head, initial encounter; S01.312A Laceration without foreign body of left ear, initial encounter; R55 Syncope and collapse; R05.9 Cough, unspecified; I10 Essential (primary) hypertension; E78.5 Hyperlipidemia, unspecified; W18.30XA Fall on same level, unspecified, initial encounter
CPT/HCPCS: 12011; 70450; 71045; 72125; 80053; 83880; 84484; 85025; 87636; 93005; 96360; 99285; J7120

== ENCOUNTER 2024-12-28 15:06 | Outpatient (CLI) | payer MEDICARE, SELFPAY ==
--- OUTSIDE RECORDS SUMMARY | 2024-12-28 15:09 | XMS_ITS | Clinical Summary ---
Author Organization [facility] Address [address] [place] [address] Care Team Providers Care Organizational Research Consultant Name Role Phone Joyce Carrero Primary Care Provider [phone] Allergies No known active allergies Medications cholecalciferol (VITAMIN D3) 25 MCG (1000 UT) tablet Take 1,000 Units by mouth Daily. Active Social History Tobacco Use Types Packs/Day Years Used Date Smoking Tobacco: Never Smokeless Tobacco: Current Chew Alcohol Use Standard Drinks/Week Comments Not Currently 0 (1 standard drink = 0.6 oz pur e alcohol) Abuse Screen Answer Date Recorded Unsafe at Home or Work/School Not on file Feels Threatened by Someone? Not on file Does Anyone Keep You from Co ntacting Others or Doint Things Outside the Home? Not on file 02/27/2023 Physical Sign of Abuse Present Not on file 1 Housing Stability Answer Date Recorded Current Living Arrangements Not on file 02/15 Potentially Unsafe Housing Conditions Not on aaron e 02/27/2023 Family and Community Support Answer Urban e Recorded Help with Day-to-Day Activities Not on file 02/27/2023 Lonely or Isolated Not on file 02/27/2023 Employment Answer Date Recorded Do you want help finding or keeping work or a darian b? Not on file 02/27/2023 Disabilities Answer Date Recorded Concentrating, Remembering, or Making Decisions Difficulty Not on file 02/27/2023 Doing Errands Independently Difficulty Not on fi le 02/27/2023 Education Answer Date Recorded Help with school or training? Not on file Preferred Language Not on file 02/27/2023 Sex and Gender Information Value Date Recorded Sex Assigned at Not on file Legal Sex Male 11:37 AM EDT Gender Identity Not on file Sexual Orientation Not on file Last Filed Vital Signs Vital Sign Reading Time Taken Comments Blood Pressure 122/69 11/12/2020 4:00 PM EDT Pulse 59 11/12/2020 4:00 PM EDT Temperature 36.7 C (98.1 F) 11/12/2020 11:42 AM EDT Respiratory Rate 16 11/12/2020 11:40 AM EDT Oxygen Saturation 98% 11/12/2020 4:00 PM EDT Inhaled Oxygen Concentration - - Weight 74.8 kg (165 lb) 11/12/2020 11:40 AM EDT Height 167.6 cm (5' 6 ) 11/12/2020 11:40 AM EDT Body Mass Index 26.63 11/12/2020 11:40 AM EDT Plan of Treatment Health Maintenance Due Date Last Done Comments ANNUAL PHYSICAL 1955 HEPATITIS C SCREENING 1954 COLOGUARD 1999 COLON CANCER SCREENING 5 YEA R SIGMOIDOSCOPY 1999 COLONOSCOPY 1999 COL[address] CANCER SCREENING 1999 CT COLONOGRAPHY 1999 FECAL OCCULT BLOOD TEST 1999 FIT Testing (1 year) 1999 Pneumococcal Vaccine 50+ (1 of 1 - PCV) 2004 ZOSTER VACCINE (1 of 2) 2004 TDAP/TD VACCINES (2 - Tdap) 09/20/2006 09/20/1996 AAA SCREEN ONCE 2019 COVID-19 Vaccine (3 - season) 2024, 06/06/2020 INFLUENZA VACCINE 02/15/2025 Insurance MEDICARE ADVANTAGE Care Teams Organizational Research Consultant Relationship Specialty Start Date End Date Joyce Carrero PA PCP - General Physician Plate Keeper 11/12/20
[2024-12-28 15:40] LABS: Hematocrit 41.6 % (42.0-52.0); Hemoglobin 14.4 g/dL (14.1-18.0); Immature Granulocytes % 0.3 %; Mean Corpuscular HGB Conc 34.6 g/dL (31.8-35.4); Mean Corpuscular Hemoglobin 29.9 pg (27.0-31.2); Mean Corpuscular Volume 86.3 fl (80-94); Nucleated Red Blood Cells % 0 %; Platelet Count 294 K/mm3 (142-424); Red Blood Count 4.82 M/mm3 (4.60-6.20); Red Cell Distribution Width-SD 40.2 fL; White Blood Count 7.0 K/mm3 (4.8-10.8)
[2024-12-28 16:21] LABS: Albumin Level 4.3 g/dl (3.5-5.0); Chloride 102 mmol/L (98-107); Potassium 3.7 mmoL/L (3.5-5.1); Sodium 138 mmol/L (136-145)
[2024-12-28 16:24] LABS: Alanine Aminotransferase 24 U/L (12-78); Albumin/Globulin Ratio 1.5 (1.1-1.8); Alkaline Phosphatase 88 U/L (38-126); Anion Gap 12.7 mEq/L (5-15); Aspartate Amino Transferase 24 U/L (17-59); Bilirubin,Total 0.4 mg/dl (0.2-1.3); Blood Urea Nitrogen 15 mg/dl (9-20); Calcium 9.3 mg/dl (8.4-10.2); Carbon Dioxide 27 mmol/L (22.0-30.0); Cholesterol 134 mg/dl (140-200); Creatinine,Serum 1.40 mg/dl (0.66-1.25); Estimated Glomerular Filt Rate 50 ml/min (>60); GFR (African American) 61 ML/MIN (>60); Globulin 2.8 g/dL (1.3-3.2); Glucose 111 mg/dl (74-100); Total Protein,Serum 7.1 g/dl (6.3-8.2); Triglycerides 139 mg/dl (30-150)
[2024-12-28 16:25] LABS: HDL Cholesterol 46 mg/dl (40-60)
[2024-12-28 17:07] LABS: Thyroid Stimulating Hormone 0.94 uIU/mL (0.465-4.68)
== END 2024-12-28 23:59 | disposition home or self-care (01) ==
LOC: LAB 15:07
PROVIDERS: PCP Nurse Practitioner Family; Visit Provider Nurse Practitioner Family
DX: E78.5 Hyperlipidemia, unspecified (principal); I10 Essential (primary) hypertension; N28.9 Disorder of kidney and ureter, unspecified
CPT/HCPCS: 36415; 80053; 80061; 84443; 85025